=== PATIENT | male | born 1970 | race Caucasian/White ===

== ENCOUNTER 2021-09-25 07:17 | Emergency (ER) | payer BC, OTHER ==
[~2021-09-25] VITALS: Ht 180.3 cm; Wt 100.7 kg
[2021-09-25 07:24] VITALS: BP 161/87
--- NOTE | 2021-09-25 07:31 | NUR ---
51/M BIB SELF WITH C/O LEFT SHOULDER PAIN. STATES HE WAS "ROTATING" HIS SHOULDER ON FRIDAY AND Pt STATED "FELT LIKE A RUBBER BAND POPPED IN MY SHOULDER." DENIES RECENT INJURY OR TRAUMA, REPORTS TAKING ADVIL AND IBUPROFEN WITH NO RELIEF. NO SWELLING OR REDNESS NOTED ON SHOULDER. PT UNABLE TO COMPLETE FULL ROM DUE TO PAIN. PMHX: DM II ALLERGIES: DENIES HOME MEDS: DENIES
--- NOTE | 2021-09-25 08:06 | NUR ---
ERMD at bedside
[2021-09-25] MEDS ORDERED: TRIAMCINOLONE 40 MG/ML 5ML VIAL IA ONE (08:10)
[2021-09-25] MEDS ORDERED: LIDOCAINE MPF 1% 10 MG/ML VIAL INJ ONE (08:10)
--- NOTE | 2021-09-25 08:45 | NUR ---
ERMD AT BEDSIDE FOR INTRA-ARTICULAR INJECTION TO LEFT SHOULDER. MEDICATIONS AND SET-UP IN PLACE.
--- NOTE | 2021-09-25 08:51 | NUR ---
KENALOG-40 AND XYLOCAINE Mpf 1% ADMINISTERED BY ELLE HUTSON AT BEDSIDE
[2021-09-25] MEDS ORDERED: ACET-8386 PO (08:54)
[2021-09-25 09:05] VITALS: BP 138/74
== END 2021-09-25 09:05 | disposition home or self-care (01) ==
LOC: MED 07:17
DX: M25.552 Pain in left hip (principal); F17.210 Nicotine dependence, cigarettes, uncomplicated; R03.0 Elevated blood-pressure reading, without diagnosis of hypertension; E11.9 Type 2 diabetes mellitus without complications; X58.XXXA Exposure to other specified factors, initial encounter; Y93.89 Activity, other specified; Y92.89 Other specified places as the place of occurrence of the external cause; Y99.8 Other external cause status
CPT/HCPCS: 20610; 73030; 99284; J2001; J3301; Q0092